=== PATIENT | female | born 1960 | race Caucasian/White ===

== ENCOUNTER 2017-10-11 17:31 | Emergency (ER) | payer OTHER ==
[2017-10-11] MEDS ORDERED: Rivaroxaban TAB(*) 15 MG PO ONE (21:26)
--- NOTE | 2017-10-11 21:28 | ED ---
Lower Extremity - HPI Summary HPI Summary: 57 feeling presents ER with complaints of left lower leg pain ongoing for the past 2 weeks. Admits to swelling however states it's been swollen since previous DVT years ago. Had a recent DVT in upper extremity months ago per patient Denies redness or warmth. Denies any recent trauma or injury. Has not taken any medicine to help with the pain. Denies shortness of breath or chest pain. No other complaints. Has history of 2 DVTs. Not currently on any anticoagulants or medications. Does have history of factor V - History of Current Complaint Chief Complaint: EDExtremityLower Stated Complaint: POSO BLOOD CLOT Time Seen by Provider: 10/11/17 19:10 Hx Obtained From: Patient Onset of Pain: Days Onset/Duration: Weeks Severity Initially: Mild Severity Currently: Moderate Pain Intensity: 6 Pain Scale Used: 0-10 Numeric Timing: Constant Location: Is Discrete @ - left posterior lower leg Character Of Pain: Sharp, Aching Associated Signs And Symptoms: Positive: Swelling Aggravating Factor(s): Ambulation Alleviating Factor(s): Nothing Able to Bear Weight: Yes - Allergies/Home Medications Allergies/Adverse Reactions: Allergies Allergy/AdvReac Type Severity Reaction Status Date / Time No Known Allergies Allergy Verified 10/11/17 17:48 PMH/Surg Hx/FS Hx/Imm Hx Endocrine/Hematology History: Reports: Hx Anticoagulant Therapy, Hx Blood Disorders - factor V Leiden Denies: Hx Diabetes Cardiovascular History: Reports: Hx Deep Vein Thrombosis - Surgical History Surgery Procedure, Year, and Place: N/a - Immunization History Immunizations Up to Date: Yes Infectious Disease History: No Infectious Disease History: Denies: Traveled Outside the [place] in Last 30 Days - Family History Known Family History: Positive: None - Social History Alcohol Use: Rare Substance Use Type: Reports: None Smoking Status (MU): Never Smoked Tobacco Review of Systems Constitutional: Negative Cardiovascular: Negative Respiratory: Negative Gastrointestinal: Negative Positive: Arthralgia, Myalgia, Edema Skin: Negative Neurological: Negative All Other Systems Reviewed And Are Negative: Yes Physical Exam Triage Information Reviewed: Yes Vital Signs On Initial Exam: Initial Vitals Temp Pulse Resp BP Pulse Ox 98.2 F 54 16 131/79 98 10/11/17 17:44 10/11/17 17:44 10/11/17 17:44 10/11/17 17:44 10/11/17 17:44 Vital Signs Reviewed: Yes Appearance: Positive: Well-Appearing, No Pain Distress, Well-Nourished Skin: Positive: Warm, Skin Color Reflects Adequate Perfusion, Dry. Negative: Cold, Soft, Pale Head/Face: Positive: Normal Head/Face Inspection Eyes: Positive: Conjunctiva Clear ENT: Positive: Hearing grossly normal Neck: Positive: Supple, Nontender Respiratory/Lung Sounds: Positive: Clear to Auscultation, Breath Sounds Present. Negative: Rales, Rhonchi, Wheezes Cardiovascular: Positive: Normal, RRR, Pulses are Symmetrical in both Upper and Lower Extremities - 2+ pedal. Negative: Murmur, Rub Abdomen Description: Positive: Nontender, Soft Bowel Sounds: Positive: Present Musculoskeletal: Positive: Normal, Strength/ROM Intact, Pain @ - Left lower leg , Edema Left - Left lower leg 40.5 left versus 38 cm right. Negative: Noel Sign Left, Noel Sign Right Neurological: Positive: Normal, Sensory/Motor Intact, Alert, Oriented to Person Place, Time, Reflexes Intact, NV Bundle Intact Distally, Normal Gait Diagnostics - Vital Signs Vital Signs Temp Pulse Resp BP Pulse Ox 10/11/17 17:44 98.2 F 54 16 131/79 98 - Laboratory Lab Statement: Any lab studies that have been ordered have been reviewed, and results considered in the medical decision making process. - Ultrasound No standard instances Ultrasound Interpretation: Positive (See Comments) - chronic partially occluding DVT 1 of 2 superficial femoral veins Thrombosed left great saphenous vein mid thigh the calf with associated thrombosed varicosities Ultrasound Interpretation Completed By: Radiologist Re-Evaluation - Re-Evaluation First Eval Re-Evaluation Time: 21:30 Change: Unchanged - Updated on ultrasound report Lower Extremity Course/Dx - Course Course Of Treatment: Ultrasound obtained to rule out DVT and positive. will treat with xarelto. given first dose while in ED. given instructions while taking anticoagulants. Patient has had history of 2 DVT in the past and previously has taken throughout so. Follow-up with primary care provider. All questions answered. No concern for PE at this time. She is aware worsening signs symptoms watch out for. Follow-up with PCP in 1-2 days. Other concerns at this time. Discussed case with Dr Morris - Diagnoses Differential Diagnosis/HQI/PQRI: Positive: DVT, Phlebitis, Sprain, Strain, Other - varicose veins Provider Diagnoses: DVT (deep venous thrombosis) Discharge - Sign-Out/Discharge Documenting (check all that apply): Patient Departure - Discharge Plan Condition: Good Disposition: HOME Prescriptions: Rivaroxaban TAB(*) [Xarelto 15 mg(*)] 15 mg PO BID #41 tab Patient Education Materials: Rivaroxaban (By mouth), Deep Vein Thrombosis (ED) Referrals: Scott Wheatley MD [Primary Care Provider] - Additional Instructions: take prescribed medication as directed for 21 days. you will need to follow up with primary care provider for remaining doses to immediately begin after 21 days dosing. follow up with pcp in 1-2 days. Any new worsening symptoms such as shortness of breath chest pain or new lower leg pain please seek medical attention as discussed. you have an increased risk of bleeding while taking this medication. do not take NSAIDs such as (aleve/naproxern, ibuprofen/motrin or aspirin). if you fall or hit your head it is crucial to seek medical attention promptly to rule out bleeding. - Billing Disposition and Condition Condition: GOOD Disposition: Home
[2017-10-11 21:57] VITALS: BP 125/83
--- NOTE | 2017-10-12 07:26 | RAD ---
HISTORY: 2 weeks of left leg pain TECHNIQUE: Multiple transverse and longitudinal ultrasound images were obtained of the veins of the left lower extremity using grayscale, color Doppler, and spectral Doppler imaging with and without compression and with augmentation. FINDINGS: VEINS: The femoral vein is duplicated. As the proximal portion of the more superficial of the paired femoral veins there is partial echogenic thrombus causing partial obstruction. The great saphenous vein at the mid thigh exhibits occlusive thrombus. There are superficial varicose veins identified at the medial lower leg measuring up to 5 mm in diameter. The common femoral vein, deep femoral vein and popliteal vein are compressible throughout their course, with normal flow on color Doppler imaging and normal response to augmentation on spectral Doppler imaging. SOFT TISSUES: Grossly normal. No large popliteal fossa cyst was identified. IMPRESSION: 1. + DVT. Partially obstructive thrombus filling the more superficial of the paranasal left femoral veins. 2. At the mid-level left thigh the great saphenous vein is thrombosed and there are pathologically enlarged varicose veins identified at the left lower leg medially. Please correlate to history of superficial vein ablation.
== END 2017-10-11 21:56 | disposition home or self-care (01) ==
LOC: ED 17:31
DX: I82.412 Acute embolism and thrombosis of left femoral vein (principal); I82.812 Embolism and thrombosis of superficial veins of left lower extremity; Z86.718 Personal history of other venous thrombosis and embolism
CPT/HCPCS: 99282